=== PATIENT | female | born 1995 | race Caucasian/White ===

== ENCOUNTER 2019-09-03 14:43 | Inpatient (IN) ==
[2019-09-03] MEDS ORDERED: RINGER'S SOLUTION,LACTATED 1,000 ML IV PRN (17:50)
[2019-09-03] MEDS ORDERED: ONDANSETRON 4 MG TAB.RAPDIS PO PRN (17:50)
[2019-09-03] MEDS ORDERED: MISOPROSTOL 100 MCG TABLET VG PRN (17:50)
[2019-09-03] MEDS ORDERED: RINGER'S SOLUTION,LACTATED 1,000 ML IV ONE (17:50)
[2019-09-03] MEDS ORDERED: LIDOCAINE HCL 50 ML VIAL PERI PRN (17:50)
[2019-09-03] MEDS ORDERED: OXYTOCIN/DEXTROSE 5%-WATER 30 UNITS/500 ML BAG IV ONE (17:50)
[2019-09-03] MEDS ORDERED: BUTORPHANOL TARTRATE 2 MG/ML VIAL IV PRN ×2 (17:50)
[2019-09-03 18:23] LABS: Hematocrit 29.9 % (37.0-47.0); Hemoglobin 10.3 gm/dL (12.5-16.0); Mean Cell Volume 87.7 fl (78-100); Mean Corpuscular Hemoglobin 30.2 pg (27-31); Mean Corpuscular Hgb Conc 34.4 g/dl (32-36); Neutrophil # 6.8 K/mm3 (1.3-6.0); Neutrophil % 62.3 % (42-75.0); Platelet Count 268 K/mm3 (150-450); Red Blood Count 3.41 M/mm3 (4.2-5.4); White Blood Count 10.9 K/mm3 (4.0-10.5)
[2019-09-03 18:38] LABS: Albumin * 2.6 gm/dl (3.4-5.0); Anion Gap 16.8 mmol/L (6.8-13.8); BUN/Creatinine Ratio 8.7 (9.0-21.6); Bilirubin, Total 0.2 mg/dL (0.0-1.1); Ca. Corrected For Albumin 9.8 mg/dL (8.4-10.2); Carbon Dioxide 21.9 mmol/L (24-32.6); Potassium 3.7 mmol/L (3.4-4.6); TSH * 2.675 uIU/mL (0.358-3.74); Total Protein 6.9 gm/dL (6.2-8.2)
[2019-09-03 18:41] LABS: Cocaine Ur Negative (NEGATIVE); Urine Barbiturate Negative (NEGATIVE); Urine Benzodiazepines Negative (NEGATIVE); Urine Opiates Negative (NEGATIVE); Urine PCP Negative (NEGATIVE); Urine THC Negative (NEGATIVE)
--- NOTE | 2019-09-04 08:15 | HP ---
Chief Complaint - Chief Complaint Date of Service: 09/04/19 Time of Service: 07:58 Chief Complaint: Induction History of Present Illness: 24 year old at 38w 1d who presents to labor and delivery for a medical induction of labor due to CHTN. She reports regular contractions on pitocin. Denies vb or lof. Fetus is active. Medical History (Last Updated 09/04/19 @ 08:02 by Marbella Calncy MD) Anemia (Acute) Onset Date: 06/11/19 w/ Chronic hypertension (Acute) BP is normal today Last growth US normal NST reactive ANGELIA normal IOL tonight Hypothyroid Infertility Pre-diabetes Preeclampsia Surgical History: Surgical History (Last Reviewed 09/04/19 @ 08:02 by Marbella Clancy MD) No significant past surgical history Family History: Family History (Last Reviewed 09/04/19 @ 08:02 by Marbella Clancy MD) Mother Diabetes Father Cancer PTSD (post-traumatic stress disorder) Social History: (Last Reviewed 09/04/19 @ 08:02 by Marbella Clancy MD) Social History: adopted: No Marital status: household members: spouse, children number of children: 1 current occupational status: employed current occupation: [employer] Highest education level completed: some college, no degree Sexually Active: Yes Service: No Tobacco: Smoking Status: Never smoker Alcohol: alcohol intake: former details: stopped with Substance Use: substance use type: does not use Dietary Habits: caffeine: Yes caffeine comment: 1 daily Pets: pets and animals: cat(s) Review Of Systems (GEN) - Review of Systems Generalized/Overall Review: Present: No Symptoms Reported EENTM: Present: No Symptoms Reported Respiratory: Present: No Symptoms Reported Cardiac: Present: No Symptoms Reported Abdominal: Present: No Symptoms Reported Genitourinary: Present: Other - contractions Musculoskeletal: Present: No Symptoms Reported Neurological: Present: No Symptoms Reported Skin: Present: No Symptoms Reported Endocrine: Present: No Symptoms Reported Allergies/Adverse Reactions: Allergies Allergy/AdvReac Type Severity Reaction Status Date / Time gelatin Allergy Swelling Verified 09/03/19 08:31 of Throat Home Medications: HOME MEDICATIONS levothyroxine 75 mcg tablet 75 mcg PO DAILY #30 tab 04/24/19 [Last Taken 09/03/19 08:00] Aspirin 81 mg PO DAILY 02/07/20 [Last Taken 09/03/19 08:00] Vits96/Iron Fum/Folic [ S] 1 tab PO DAILY 06/05/19 [Last Taken 09/03/19 08:00] ferrous sulfate 325 mg (65 mg iron) tablet 325 mg PO DAILY 06/25/19 [Last Taken 09/03/19 08:00] Exam - Exam Vital Signs: Vital Signs - Last Taken Temp 37.0 C 09/03/19 18:22 Pulse 106 H 09/03/19 18:22 Resp 20 09/03/19 18:22 BP 142/82 H 09/03/19 18:22 Pulse Ox 99 09/03/19 18:22 Constitutional: Present: Alert, Oriented x3, Cooperative, No distress ENT Exam: Present: hearing grossly normal Neck: Present: normal inspection Back Exam: Present: normal inspection Breasts: Present: Exam deferred Respiratory: Present: lungs clear, normal breath sounds, no respiratory distress Cardiovascular/Chest: Present: regular rate, rhythm Abdomen: Present: soft, nontender, nondistended /Rectal: Present: Other - cvx 4-5/60/-2 AROM for a large amount of clear fluid. IUPC and FSE placed Extremity: Present: non-tender, no calf tenderness Skin Exam: Present: normal color, warm/dry, no cyanosis Neurologic: Present: alert, normal mood/affect, oriented x 3 Appearance: Present: appropriate appearance, appropriate insight, neat, no memory impairment Eye contact: Present: cooperative, good eye contact, normal speech Thoughts: Present: normal thought pattern Diagnostic Studies: Abnormal Lab Results 09/03/19 09/03/19 Range/Units 18:08 18:08 WBC 10.9 H (4.0-10.5) K/mm3 RBC 3.41 L (4.2-5.4) M/mm3 Hgb 10.3 L (12.5-16.0) gm/dL Hct 29.9 L (37.0-47.0) % Immature Gran % (Auto) 0.70 H (0.001-0.429) % Immature Gran # (Auto) 0.08 H (0.000-0.0310) K/mm3 Neutrophils # 6.8 H (1.3-6.0) K/mm3 Carbon Dioxide 21.9 L (24-32.6) mmol/L Anion Gap 16.8 H (6.8-13.8) mmol/L BUN/Creatinine Ratio 8.7 L (9.0-21.6) Random Glucose 123 H (70-110) mg/dL ALT 14 L (19-67) U/L Albumin 2.6 L (3.4-5.0) gm/dl Laboratory Results WBC 10.9 K/mm3 (4.0-10.5) H 09/03/19 18:08 RBC 3.41 M/mm3 (4.2-5.4) L 09/03/19 18:08 Hgb 10.3 gm/dL (12.5-16.0) L 09/03/19 18:08 Hct 29.9 % (37.0-47.0) L 09/03/19 18:08 MCV 87.7 fl (78-100) 09/03/19 18:08 MCH 30.2 pg (27-31) 09/03/19 18:08 MCHC 34.4 g/dl (32-36) 09/03/19 18:08 RDW 14.0 % (11.5-14.0) 09/03/19 18:08 Plt Count 268 K/mm3 (150-450) 09/03/19 18:08 MPV 10.0 fl (8-12.5) 09/03/19 18:08 Immature Gran % (Auto) 0.70 % (0.001-0.429) H 09/03/19 18:08 Immature Gran # (Auto) 0.08 K/mm3 (0.000-0.0310) H 09/03/19 18:08 Neutrophils % 62.3 % (42-75.0) 09/03/19 18:08 Lymphocytes % 26.6 % (20-51) 09/03/19 18:08 Monocytes % 7.2 % (0.0-9) 09/03/19 18:08 Eosinophils % 3.0 % (0.0-3.0) 09/03/19 18:08 Basophils % 0.2 % (0.0-1.0) 09/03/19 18:08 Nucleated RBC % 0.0 k/mm3 (0-1) 09/03/19 18:08 Neutrophils # 6.8 K/mm3 (1.3-6.0) H 09/03/19 18:08 Lymphocytes # 2.89 k/mm3 (1.5-3.5) 09/03/19 18:08 Monocytes # 0.8 k/mm3 (0.0-1.0) 09/03/19 18:08 Eosinophils # 0.3 k/mm3 (0.0-0.7) 09/03/19 18:08 Absolute Basophils 0.0 k/mm3 (0.0-0.1) 09/03/19 18:08 Sodium 137 mmol/L (132-142) 09/03/19 18:08 Plasma Sodium 137 mmol/L (130-142) 09/03/19 18:08 Potassium 3.7 mmol/L (3.4-4.6) 09/03/19 18:08 Chloride 102 mmol/L (97-106) 09/03/19 18:08 Carbon Dioxide 21.9 mmol/L (24-32.6) L 09/03/19 18:08 Anion Gap 16.8 mmol/L (6.8-13.8) H 09/03/19 18:08 BUN 6 mg/dL (3-23) 09/03/19 18:08 Creatinine 0.69 mg/dL (0.4-1.4) 09/03/19 18:08 Est GFR (Non-Af Amer) 112 mL/min (60-130) 09/03/19 18:08 BUN/Creatinine Ratio 8.7 (9.0-21.6) L 09/03/19 18:08 Random Glucose 123 mg/dL (70-110) H 09/03/19 18:08 Calcium 9.0 mg/dL (7.9-10.9) 09/03/19 18:08 Calcium Adj for Albumin 9.8 mg/dL (8.4-10.2) 09/03/19 18:08 Total Bilirubin 0.2 mg/dL (0.0-1.1) 09/03/19 18:08 AST 24 U/L (0-48) 09/03/19 18:08 ALT 14 U/L (19-67) L 09/03/19 18:08 Alkaline Phosphatase 116 U/L (50-170) 09/03/19 18:08 Total Protein 6.9 gm/dL (6.2-8.2) 09/03/19 18:08 Albumin 2.6 gm/dl (3.4-5.0) L 09/03/19 18:08 TSH 2.675 uIU/mL (0.358-3.74) 09/03/19 18:08 Ur Random Creatinine 89.5 mg/dL (60-200) 09/03/19 18:00 U Random Total Protein 12.0 mg/dL (0-12) 09/03/19 18:00 U [place] Prot/Creat Ratio 134 mg/gm (0-199) 09/03/19 18:00 Urine Opiates Screen Negative (NEGATIVE) 09/03/19 18:00 Barbiturate Screen Negative (NEGATIVE) 09/03/19 18:00 Ur Phencyclidine Scrn Negative (NEGATIVE) 09/03/19 18:00 Urine Amphetamine Negative (NEGATIVE) 09/03/19 18:00 U Benzodiazepines Scrn Negative (NEGATIVE) 09/03/19 18:00 Urine Cocaine Screen Negative (NEGATIVE) 09/03/19 18:00 Urine Marijuana (THC) Negative (NEGATIVE) 09/03/19 18:00 Blood Type O Positive 09/03/19 18:08 Antibody Screen Negative 09/03/19 18:08 Assessment/Plan - Narrative Narrative: 24 year old at 38w 1d 1. Medical IOL due to CHTN: BPs mild to normal range, no proteinuria on admission so no pre-eclampsia, pre-eclampsia labs normal on admission to labor and delivery. On pitocin at 6 milliunits/min. AROM for clear fluid 2. Hypothyroidism: TSH normal on admission to labor and delivery 3. Abnormal GCT: Normal GTT 4. GBS negative: prophylaxis not indicated FHT reactive and reassuring - Assessment/Plan (1) Hypothyroidism Problem: Acute Qualifiers: Hypothyroidism type: acquired (2) Abnormal glucose tolerance in Problem: Acute (3) Normal Papanicolaou smear Problem: Acute (4) 38 weeks gestation of Problem: Acute (5) Chronic hypertension Problem: Acute
[2019-09-04] MEDS ORDERED: BUPIVACAINE HCL/0.9 % NACL/PF 250 ML EP PRN (08:42)
[2019-09-04] MEDS ORDERED: ONDANSETRON HCL/PF 2 MG/ML VIAL IV PRN (08:42)
[2019-09-04] MEDS ORDERED: NALOXONE HCL 1 MG/1 ML SYRG IV PRN (08:42)
[2019-09-04] MEDS ORDERED: fentaNYL CITRATE/PF 50 MCG/ML AMPUL IT SCH (08:45)
--- NOTE | 2019-09-04 12:38 | ANES ---
Anesthesia Pre Procedure Eval Vitals/Labs: Last Vital Signs Temp 36.9 C 09/04/19 09:53 Pulse 96 09/04/19 09:53 Resp 22 H 09/04/19 09:53 BP 145/78 H 09/04/19 09:53 Pulse Ox 98 09/04/19 09:53 HOME MEDICATIONS levothyroxine 75 mcg tablet 75 mcg PO DAILY #30 tab 04/24/19 [Last Taken 09/03/19 08:00] Aspirin 81 mg PO DAILY 06/05/19 [Last Taken 09/03/19 08:00] Vits96/Iron Fum/Folic [ S] 1 tab PO DAILY 06/05/19 [Last Taken 09/03/19 08:00] ferrous sulfate 325 mg (65 mg iron) tablet 325 mg PO DAILY 06/25/19 [Last Taken 09/03/19 08:00] Allergies/Adverse Reactions: Allergies Allergy/AdvReac Type Severity Reaction Status Date / Time gelatin Allergy Swelling Verified 09/03/19 08:31 of Throat - Planned Procedure Planned Procedure: medical induction Medication List Reviewed:: Yes Allergies Verified: Yes Medical History (Last Reviewed 09/04/19 @ 12:38 by Charles Pearce CRNA) Anemia (Acute) Onset Date: 06/11/19 w/ Chronic hypertension (Acute) BP is normal today Last growth US normal NST reactive ANGELIA normal IOL tonight Hypothyroid Infertility Pre-diabetes Preeclampsia Surgical History (Last Reviewed 09/04/19 @ 12:38 by Charles Pearce CRNA) No significant past surgical history Family History (Last Reviewed 09/04/19 @ 12:38 by Charles Pearce CRNA) Mother Diabetes Father Cancer PTSD (post-traumatic stress disorder) - Family Anesthesia History Family History:: no untoward family reactions to anesthesia - Airway/Neck/Teeth Within Normal Limits:: Yes Teeth Condition: intact Neck Exam: full range of motion Mallampatti Score: 2 Thyromental (T-M) distance: > 6 cm Mandibulo Hyoid distance: > 3 cm - Respiratory Respiratory Physical: lungs clear Smoking Status: Never smoker Sleep Apnea currently treated: No Sleep Apnea by current assessment: No - Cardiovascular Tolerate Activity: Good Heart Sounds: S1 & S2, Regular - Gastrointestinal NPO since: 0800 - Anesthesia Assessment and Plan ASA Class: PS, II, E Anesthesia Type Plan: Epidural Planned difficult intubation/equipment available: No
--- NOTE | 2019-09-04 12:39 | ANES ---
Post Anesthesia Discharge - Transfer of Care Transfer of Care handoff given to nurse: Yes - Anesthesia Post Op Note Anesthesia Post Op Note: care transferred to OB RN
--- NOTE | 2019-09-04 12:39 | ANES ---
Post Anesthesia Assessment - Vital Signs Vitals: Last Vital Signs Temp 36.9 C 09/04/19 09:53 Pulse 96 09/04/19 09:53 Resp 22 H 09/04/19 09:53 BP 145/78 H 09/04/19 09:53 Pulse Ox 98 09/04/19 09:53 Airway Patency: Normal - Mental Status Level Of Consciousness: Awake - Pain Level Pain Score: 2 - N/V Assessment Nausea/Vomiting Presence: None Dehydration:: No
--- NOTE | 2019-09-04 12:58 | ANES ---
Anesthesia Procedure Note Procedure Note: ANESTHESIA PROCEDURE NOTE Date of Procedure: 09/04/2019 Time of procedure: 940. Performed by: Anderson Pearce CRNA Denture Waxer: None. Preprocedure diagnosis: Active labor. Post procedure diagnosis: Same. Procedure: Insertion of labor epidural. Indications: The patient is a 24-year-old multigravid female in active labor requesting labor epidural for pain management. Findings: See below. Details of the procedure: The patient was placed in a sitting position. Back was prepped with DuraPrep. Patient was then draped in a sterile fashion. Lidocaine 1% was infiltrated to the skin and subcutaneous tissues at the level of the L3 4 interspace. The epidural space was identified using a 18-gauge Tuohy needle with [id number] technique. 20 mcg fentanyl was given intrathecally using a 27 ga. spinal needle. Epidural catheter was inserted without difficulty. Negative test dose was elicited using 5 mL of 1.5% preservative-free lidocaine plus epinephrine 1 200,000. The epidural catheter was then taped and secured in place. EBL: Minimal. Fluids: N/A. Specimen: N/A. Post procedure condition: The patient tolerated the procedure well. No complications were noted. Thank you for this consultation. Saab CRNA
[2019-09-04] MEDS ORDERED: diphenhydrAMINE HCL 25 MG CAPSULE PO PRN (17:06)
[2019-09-04] MEDS ORDERED: BENZOCAINE/MENTHOL 81 SPRAY CAN TP PRN (17:06)
[2019-09-04] MEDS ORDERED: SENNOSIDES 8.6 MG TABLET PO PRN (17:06)
[2019-09-04] MEDS ORDERED: IBUPROFEN 800 MG TABLET PO PRN (17:06)
[2019-09-04] MEDS ORDERED: GLYCERIN/WITCH HAZEL LEAF 40 APPL BOX TP PRN (17:06)
[2019-09-04] MEDS ORDERED: HYDROCORTISONE 30 APPL TUBE TP PRN (17:06)
[2019-09-04] MEDS ORDERED: HYDROcodone/ACETAMINOPHEN 1 EACH TABLET PO PRN ×2 (17:06)
[2019-09-04] MEDS ORDERED: OXYTOCIN/DEXTROSE 5%-WATER 30 UNITS/500 ML BAG IV ONE (17:06)
[2019-09-04] MEDS ORDERED: BISACODYL 10 MG SUPP.RECT RC PRN (17:06)
--- NOTE | 2019-09-04 17:06 | OR ---
Operative Report - Dictated Report Narrative: Date of delivery: 09/04/2019 Time of delivery: 1614 Gender: male APGARS: 5/9 weight: 3293 grams Procedure: Description of the procedure: The patient is a 24 year old at 38w 1d who presented to labor and delivery for a medical induction of labor due to chronic hypertension. She received one dose of misoprostol for cervical ripening followed by pitocin administration and AROM. She progressed to an anterior lip. The anterior lip easily reduced with two contractions. She thus progressed to complete dilation. She delivered a viable male in direct OA presentation. A shoulder dystocia was noted. The shoulder dystocia resolved after 1 minute 45 seconds. 45 seconds of the delay was due to cutting a tight nuchal cord at the perineum. The dystocia resolved with the Lindsey manuever which was performed only once. The was placed on the maternal abdomen but when noted not to be vigorous the was moved to the warmer for resuscitation. Terminal meconium was noted. The placenta delivered by expression and appeared intact. Cord blood was collected and cord gases were drawn. Only a small amount of arterial blood was obtained. There were no lacerations. EBL: 100 mL Complications: none Specimens: placenta to pathology, cord gases History for Definition: * The number of deliveries resulting in a live the patient experienced prior to current hospitalization * The previous delivery of live twins or any live multiple gestation is considered one live event. *If primagravida or nulliparous is documented select zero for the number of previous live births. Live Events: 1
[2019-09-04] MEDS: DOCUSATE SODIUM 100 MG CAPSULE PO SCH (22:03)
--- NOTE | 2019-09-05 10:25 | PN ---
Subjective - Date and Time Seen Date: 09/05/19 Time: 10:19 Subjective Narrative: Patient without complaints Objective Objective Narrative: See vital signs - Review of Systems Generalized/Overall Review: Reports: No Symptoms Reported Misc: All systems neg except as marked - Vitals Vitals: Last Vital Signs Temp 36.0 C 09/05/19 08:50 Pulse 87 09/05/19 08:50 Resp 20 09/05/19 08:50 BP 137/83 09/05/19 08:50 Pulse Ox 98 09/05/19 08:50 - Exam Constitutional: Present: Alert, Oriented x3, Cooperative, No distress ENT Exam: Present: hearing grossly normal Abdomen: Present: soft, nontender, nondistended - fundus is firm Extremity: Present: non-tender, no calf tenderness Skin Exam: Present: normal color, warm/dry, no cyanosis Appearance: Present: appropriate appearance, appropriate insight, neat, no memory impairment Eye contact: Present: cooperative, good eye contact, normal speech Thoughts: Present: normal thought pattern Cauti Physician Documentation - Urinary Catheter Management Urethral (Young) Urethral Indwelling: No Date of Insertion: 09/04/19 Time of Insertion: 10: Date of Removal: 09/04/19 Time of Removal: 16:00 Assessment/Plan Plan Narrative: PPD 1 s/p Doing well The infant is doing well and moving all arms Discharge tomorrow - Problems/Diagnosis (1) Hypothyroidism Problem: Acute Qualifiers: Hypothyroidism type: acquired (2) Abnormal glucose tolerance in Problem: Acute (3) Normal Papanicolaou smear Problem: Acute (4) 38 weeks gestation of Problem: Acute (5) Chronic hypertension Problem: Acute
[2019-09-05] MEDS: DOCUSATE SODIUM 100 MG CAPSULE PO SCH ×2 (10:58→20:38)
[2019-09-05] MEDS: LEVOTHYROXINE SODIUM 75 MCG TABLET PO SCH (10:59)
[2019-09-06] MEDS ORDERED: LEVOTHYROXINE SODIUM 75 MCG TABLET PO SCH (07:00)
[2019-09-06] MEDS: DOCUSATE SODIUM 100 MG CAPSULE PO SCH ×2 (07:48→14:50)
[2019-09-06] MEDS: LEVOTHYROXINE SODIUM 75 MCG TABLET PO SCH (07:48)
[2019-09-06] MEDS ORDERED: PRENATAL VITS96/IRON FUM/FOLIC 1 TAB TABLET PO SCH (09:00)
--- NOTE | 2019-09-06 10:48 | PN ---
Subjective - Date and Time Seen Date: 09/06/19 Time: 10:46 Subjective Narrative: Patient without complaints Objective Objective Narrative: See vital signs - Review of Systems Generalized/Overall Review: Reports: No Symptoms Reported Misc: All systems neg except as marked - Vitals Vitals: Last Vital Signs Temp 36.6 C 09/06/19 07:40 Pulse 90 09/06/19 07:40 Resp 20 09/06/19 07:40 BP 136/76 09/06/19 07:40 Pulse Ox 99 09/06/19 07:40 - Exam Constitutional: Present: Alert, Oriented x3, Cooperative, No distress ENT Exam: Present: hearing grossly normal Abdomen: Present: soft, nontender, nondistended - fundus is firm Extremity: Present: non-tender, no calf tenderness Skin Exam: Present: normal color, warm/dry, no cyanosis Appearance: Present: appropriate appearance, appropriate insight Eye contact: Present: cooperative, good eye contact, normal speech Thoughts: Present: normal thought pattern Cauti Physician Documentation - Urinary Catheter Management Urethral (Young) Urethral Indwelling: No Date of Insertion: 09/04/19 Time of Insertion: 10:26 Date of Removal: 09/04/19 Time of Removal: 16:00 Assessment/Plan Plan Narrative: PPD 2 s/p Doing well Discharge home Detailed discharge instructions given Follow-up in 2 weeks or sooner for any other concerns - Problems/Diagnosis (1) Hypothyroidism Problem: Acute Qualifiers: Hypothyroidism type: acquired (2) Abnormal glucose tolerance in Problem: Acute (3) Normal Papanicolaou smear Problem: Acute (4) 38 weeks gestation of Problem: Acute (5) Chronic hypertension Problem: Acute
[2019-09-06 16:47] VITALS: BP 146/81
== END 2019-09-06 16:30 | disposition home or self-care (01) | DRG 807 ==
LOC: OB 17:41
PROVIDERS: ADMIT Obstetrics & Gynecology; ATTEND Obstetrics & Gynecology
DX: Z3A.38 38 weeks gestation of pregnancy; Z37.0 Single live birth; O99.814 Abnormal glucose complicating childbirth; O11.4 Pre-existing hypertension with pre-eclampsia, complicating childbirth; O99.02 Anemia complicating childbirth; O66.0 Obstructed labor due to shoulder dystocia; O99.284 Endocrine, nutritional and metabolic diseases complicating childbirth
CPT/HCPCS: 36415; 59025; 80053; 80307; 82570; 84155; 84156; 84443; 85025; 86850; 88888